=== PATIENT | female | born 1995 | race Caucasian/White ===

== ENCOUNTER 2021-03-04 00:35 | Emergency (ER) | payer MEDICAID, OTHER ==
[~2021-03-04] VITALS: Ht 170.2 cm; Wt 52.2 kg
--- NOTE | 2021-03-04 00:50 | NUR ---
PT AMBULATED TO ER STATING SHE HAD "CONDOM STUCK IN MY VAGINA" FROM INTERCOURSE WITH 3 HRS BONE TENDER. NO SOB OR LABORED BREATHING, AFEBRILE.
--- NOTE | 2021-03-04 00:51 | NUR ---
DR. BALDERAS AT BEDSIDE, MSE PROGRESS.
--- NOTE | 2021-03-04 01:05 | NUR ---
NAVJOT BALDERAS FOR PELVIC EXAM.
[2021-03-04] MEDS ORDERED: CLIN300C12 PO (01:14)
[2021-03-04 01:25] VITALS: BP 120/71
--- NOTE | 2021-03-04 01:25 | NUR ---
Patient discharged to home in stable condition. Written and verbal after care instructions given. Patient verbalizes understanding of instructions. Stressed follow up or return to ER for worsening s/s. Steady gait, picked up by .
== END 2021-03-04 01:22 | disposition home or self-care (01) ==
LOC: ER 00:41
DX: T19.2XXA Foreign body in vulva and vagina, initial encounter (principal); X58.XXXA Exposure to other specified factors, initial encounter; Y93.89 Activity, other specified; Y92.89 Other specified places as the place of occurrence of the external cause
CPT/HCPCS: A4663